=== PATIENT | male | born 1990 ===

== ENCOUNTER 2017-02-16 09:44 | Emergency (ER) | payer BC ==
--- NOTE | 2017-02-16 10:58 | UC ---
Throat Pain/Nasal Marcos HPI - HPI Summary HPI Summary: FOUR DAYS OF RIGHT SIDED SORE THROAT AND EAR ACHE. NO FEVER. NO COUGH. HAS BEEN TAKING TYLENOL AND IBUPROFEN WITHOUT RELIEF. - History of Current Complaint Chief Complaint: UCRespiratory Stated Complaint: SORE THROAT Time Seen by Provider: 02/16/17 10:20 Hx Obtained From: Patient Onset/Duration: Gradual Onset, Lasting Days, Still Present Severity: Moderate Cough: None Associated Signs & Symptoms: Positive: Dysphagia, Hoarseness - Epiglottits Risk Factors Epiglottis Risk Factors: Negative - Allergies/Home Medications Allergies/Adverse Reactions: Allergies Allergy/AdvReac Type Severity Reaction Status Date / Time No Known Allergies Allergy Verified 02/16/17 10:11 Home Medications: Home Medications Acetaminophen [Tylenol] 02/16/17 [History] Pseudoephedrine HCL ER TAB* [Sudafed 12 Hour*] 02/16/17 [History] PMH/Surg Hx/FS Hx/Imm Hx Previously Healthy: Yes Endocrine History Of: Denies: Diabetes, Thyroid Disease Cardiovascular History Of: Denies: Cardiac Disorders, Hypertension Respiratory History Of: Denies: COPD, Asthma GI/ History Of: Denies: Ulcer - Surgical History Surgical History: None - Family History Known Family History: Negative: Respiratory Disease - Social History Occupation: Employed Full-time Lives: With Family Alcohol Use: Occasionally Substance Use Type: None Smoking Status (MU): Never Smoked Tobacco Review of Systems Constitutional: Negative Skin: Negative Eyes: Negative ENT: Sore Throat Respiratory: Negative Cardiovascular: Negative Gastrointestinal: Negative Genitourinary: Negative Motor: Negative Neurovascular: Negative Musculoskeletal: Negative Neurological: Negative Psychological: Negative All Other Systems Reviewed And Are Negative: Yes Physical Exam Triage Information Reviewed: Yes Appearance: Well-Appearing, No Pain Distress, Well-Nourished Vital Signs: Initial Vital Signs Temp 99.3 F 02/16/17 10:04 Pulse 75 02/16/17 10:04 Resp 16 02/16/17 10:04 BP 107/70 02/16/17 10:04 Pulse Ox 99 02/16/17 10:04 Eye Exam: Normal ENT: Positive: Pharyngeal erythema, TM dull, Tonsillar swelling Dental Exam: Normal Neck: Positive: Enlarged Nodes @ - RIGHT ANTERIOR CERVICAL LYMPHNODE FIRM AND ENLARGED Respiratory Exam: Normal Respiratory: Positive: Chest non-tender, Lungs clear, Normal breath sounds, No respiratory distress, No accessory muscle use Cardiovascular Exam: Normal Cardiovascular: Positive: RRR, No Murmur, Pulses Normal Abdominal Exam: Normal Abdomen Description: Positive: Nontender, No Organomegaly Musculoskeletal Exam: Normal Neurological Exam: Normal Psychological Exam: Normal Skin Exam: Normal Throat Pain/Nasal Course/Dx - Differential Dx/Diagnosis Differential Diagnosis/HQI/PQRI: Peritonsillar Abscess, Pharyngitis, Sinusitis, Tonsillitis, URI Provider Diagnoses: TONSILITIS. RIGHT ANTERIOR CERVICAL LYMPHADENOPATHY Discharge - Discharge Plan Condition: Stable Disposition: HOME Prescriptions: Clindamycin Cap(NF) [Cleocin 300 mg Cap(NF)] 300 mg PO TID #30 cap Patient Education Materials: Lymphadenopathy (ED), Tonsillitis (ED) Referrals: [facility] [Outside] Jaskaran Howell MD [Primary Care Provider] -
== END 2017-02-16 10:59 | disposition home or self-care (01) ==
LOC: UCEAST 09:44
DX: J03.90 Acute tonsillitis, unspecified (principal); R59.9 Enlarged lymph nodes, unspecified
CPT/HCPCS: 87651; 99201; G0463